=== PATIENT | female | born 1950 | race Caucasian/White ===

== ENCOUNTER 2016-10-07 20:03 | Emergency (ER) | payer OTHER ==
[~2016-10-07] VITALS: Ht 162.6 cm; Wt 68.1 kg
[~2016-10-07 20:03] MED LIST: PRAVACHOL40 MG PO; PREVACID30 MG PO; XANAX2 MG PO; ZITHROMAX Z-PA250 MG PO
[2016-10-07 20:49] LABS: EOSINOPHIL (%) 4.1 % (0-5); EOSINOPHIL COUNT 0.2 K/uL (0-0.3); HEMATOCRIT 36.8 % (36.0-46.0); LYMPHOCYTE COUNT 1.1 K/uL (1.0-2.8); MCH 33.2 PG (29.0-34.0); MCHC 35.6 G/DL (30.0-36.0); MCV 93.4 FL (83-99); MEAN PLAT.VOLUME 9.1 uM^3 (9.5-12.4); MONOCYTE COUNT 0.4 K/uL (0-0.8); NEUTROPHIL (%) 59.2 % (45-76); NEUTROPHIL COUNT 2.3 K/uL (1.8-6.4); PLATELET COUNT 218 K/uL (156-360); RBC DIS.WIDTH-SD 46.4 % (39-53); RED BLOOD COUNT 3.94 M/uL (3.80-5.20); WHITE BLOOD COUNT 3.9 K/uL (4.1-10.2)
[2016-10-07 20:57] LABS: CHLORIDE 109 mEq/L (99-109); POTASSIUM 3.3 mEq/L (3.7-5.4); SODIUM 141 mEq/L (136-147)
[2016-10-07 20:58] LABS: GLUCOSE 142 mg/dL (70-99)
[2016-10-07 21:00] LABS: ANION GAP 12 MEQ/L (2-14)
[2016-10-07 21:02] LABS: GFR ESTIMATE (CALCULATED) > 59 mL/min/
[2016-10-07 21:03] LABS: UREA NITROGEN (BUN) 20 mg/dL (9-23)
[2016-10-07 21:11] LABS: TROP-I INTERPRETATION NEGATIVE; TROPONIN-I < 0.01 ng/mL (0.0-0.30)
[2016-10-07 22:25] LABS: ADD MIUA? NO; BILIRUBIN NEGATIVE; BLOOD NEGATIVE; COLOR YELLOW ((YELLOW)); GLUCOSE (STRIP) NEGATIVE; KETONES TRACE; LEUKOCYTES NEGATIVE; NITRITE NEGATIVE; PH, URINE 7.5 (5-8); PROTEIN (STRIP) NEGATIVE; SPECIFIC GRAVITY 1.007 (1.000-1.030); UCUL ADDED? NO; UROBILINOGEN 0.2 MG/DL (0.2-1.0)
[2016-10-07] MEDS ORDERED: GAS-X80 MG PO (23:00)
[2016-10-07] MEDS ORDERED: ACETAMINOPHEN325 M1 PO (23:00)
[2016-10-07] MEDS ORDERED: STOOL SOFTENER100 M1 PO (23:01)
[2016-10-07] MEDS ORDERED: ZOFRAN ODT4 MG PO (23:01)
[2016-10-07 23:17] VITALS: BP 111/75
== END 2016-10-07 23:45 | disposition home or self-care (01) ==
LOC: EME → EDBD 20:03 → EME 23:45
PROVIDERS: Emergency Medicine
DX: R55 Syncope and collapse (principal); E78.5 Hyperlipidemia, unspecified
CPT/HCPCS: 80048; 81003; 84484; 85025; 93005; 99281; 99285; J2405; J7030; J7040